=== PATIENT | male | born 1950 | race Caucasian/White ===

== ENCOUNTER 2019-06-09 18:42 | Emergency (ER) | payer MEDICARE, OTHER ==
[2019-06-09] MEDS ORDERED: DEXTROSE 10% 250 ML 250 ML IV ONE (18:46)
--- NOTE | 2019-06-09 19:03 | ERPHSYRPT ---
- History of Present Illness Time Seen by Provider: 06/09/19 18:52 Source: patient, family Exam Limitations: no limitations Patient Subjective Stated Complaint: Hypoglycemia Triage Nursing Assessment: Pt arrived with family and was unable to get out of the vehicle, unable to pivot and follow directions, pt's BS 57 on Accucheck, given D10 and he came around quickly, no neurological deficits noted, Physician History: 68 years old male with history of ventricular fibrillation rate controlled on Coumadin, intervention, diabetes mellitus,, chronic kidney disease present in the ER with sudden onset generalized weakness with feeling as if he was going to pass out. reports patient was totally blank out prior to arrival and was trying to which was not making sense , needing help to get into a car and get out of bed. On arrival his blood sugar was in the 50s. He is given IV dextrose and patient's symptoms drastically started to improve and while I was talking to patient he is back to normal. Patient reports his blood sugar was low yesterday and 70s but did not have any symptoms. He has taken insulin around 3 PM but did not eat anything. Denies any blurry vision, difficulty speech, focal numbness tingling or weakness at present. Does have a history of stroke with some right-sided residual weakness. Timing/Duration: today Severity: moderate Character of Deficits: new weakness, general (difuse) Deficits: weak Baseline/Normal Cognition: alert oriented x 3 Current Cognition: alert oriented x 3 Associated Symptoms: confusion, fatigue, No loss of consciousness, No vomiting, No insomnia, No muscle spasms, No numbness/tingling in legs/feet, No paresthesia , No ringing in ears, No seizures, No slurred speech, No vision changes, No chest pain, No headache Allergies/Adverse Reactions: No Known Drug Allergies Allergy (Unverified 02/03/19 15:47) Home Medications: Aspirin 81 gm Chew [Baby Aspirin 81 mg Chew] 81 mg PO HS 11/25/14 [History ] Cinnamon Bark [Cinnamon] 1,200 mg PO BID 11/25/14 [History] Alsey-3/Dha/Epa/Fish Oil [Fish Oil 500 mg Softgel] 1 cap PO BID 11/25/14 [ History] Rosuvastatin Calcium [Crestor] 10 mg PO HS 11/25/14 [History] Warfarin Sodium 5 mg [Coumadin 5 MG] 5 mg PO DAILY 11/25/14 [History] Bumetanide 1 mg [Bumex 1 mg] 1 mg PO BID 06/09/19 [History] Digoxin 0.125 mg Tablet [Lanoxin 0.125MG TABLET] 0.125 mg PO DAILY [History] Finasteride 5 mg [Proscar 5 MG] 5 mg PO DAILY 06/09/19 [History] Insulin Aspart [NovoLOG Insulin] 10 unit SQ BID 06/09/19 [History] Insulin Glargine,Hum.rec.anlog [Lantus] 50 unit SQ BID 06/09/19 [History] Losartan Potassium [Cozaar] 25 mg PO DAILY 06/09/19 [History] Magnesium Oxide [Magnesium] 400 mg PO DAILY 06/09/19 [History] Metoprolol Succinate 50 mg [Toprol Xl 50 MG] 75 mg PO BID 06/09/19 [ History] Potassium Chloride 10 Meq Tab* [Klor Con 10 MEQ] 10 meq PO DAILY 06/09/19 [ History] glipiZIDE [Glipizide] 20 mg PO BID 06/09/19 [History] Hx Tetanus, Diphtheria Vaccination/Date Given: (UNSURE) Hx Influenza Vaccination/Date Given: Yes Hx Pneumococcal Vaccination/Date Given: Yes - Review of Systems Constitutional: Fatigue, Lethargy, Weakness Eyes: No Symptoms Ears, Nose, & Throat: No Symptoms Respiratory: No Symptoms Cardiac: No Symptoms Abdominal/Gastrointestinal: No Symptoms Genitourinary Symptoms: No Symptoms Musculoskeletal: No Symptoms Skin: No Symptoms Neurological: No Symptoms, No Focal Weakness, No Headache, No Sensory Changes Psychological: No Symptoms Endocrine: No Symptoms Hematologic/Lymphatic: No Symptoms Immunological/Allergic: No Symptoms - Past Medical History Pertinent Past Medical History: Yes Neurological History: Stroke, TIA ENT History: No Pertinent History Cardiac History: Coronary Artery Disease, Myocardial Infarction ([place]), High Cholesterol, Hypertension Respiratory History: No Pertinent History Endocrine Medical History: Diabetes Type II Musculoskeletal History: No Pertinent History GI Medical History: No Pertinent History History: No Pertinent History Psycho-Social History: No Pertinent History Male Reproductive Disorders: Prostate Problems - Past Surgical History Past Surgical History: Yes Neuro Surgical History: No Pertinent History Cardiac: CABG, Cardiac Stent, Cardiac Catheterization Respiratory: No Pertinent History Gastrointestinal: No Pertinent History Genitourinary: No Pertinent History Musculoskeletal: No Pertinent History Male Surgical History: No Pertinent History Other Surgical History: FEM POP. LEFT CAROTID. 4 VESSEL CABG. TONSILS - Social History Smoking Status: Former smoker Exposure to second hand smoke: No Drug Use: none Patient Lives Alone: No - Nursing Vital Signs Nursing Vital Signs: Initial Vital Signs Temperature 97.5 F 06/09/19 18:49 Pulse Rate 87 06/09/19 18:49 Respiratory Rate 20 06/09/19 18:49 Blood Pressure 180/94 06/09/19 18:49 O2 Sat by Pulse Oximetry 91 L 06/09/19 18:49 Pain Scale Pain Intensity 0 - Barbra Coma Scale Best Eye Response ([place]bra): (4) open spontaneously Best Verbal Response ([place]): (5) oriented Best Motor Response ([place]bra): (6) obeys commands [place] Total: 15 - Physical Exam General Appearance: no apparent distress, anxiety Eye Exam: bilateral eye: normal inspection, PERRL, EOMI Ears, Nose, Throat Exam: normal ENT inspection, TMs normal, pharynx normal Neck Exam: normal inspection, non-tender, supple, full range of motion Respiratory: normal breath sounds, lungs clear, No respiratory distress Cardiovascular: regular rate/rhythm, normal heart sounds Gastrointestinal: soft, normal bowel sounds, No tenderness, No distention Back Exam: normal inspection Extremity Exam: normal inspection, normal range of motion, pelvis stable Mental Status: alert, oriented x 3, 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 Exam: normal hearing, normal speech, PERRL, No facial asymmetry, No facial droop Coordination/Gait: normal finger to nose (thisIA day he indicated well he need to stay in) Motor/Sensory: no motor deficit, no sensory deficit, no pronator drift, positive Babinski's sign (right) Skin Exam: normal color, warm, dry SpO2 Interpretation: normal SpO2: 91 O2 Delivery: Room Air - Course Nursing assessment & vital signs reviewed: Yes EKG Interpreted by Me: RATE (91), A-fib, Left [place] Deviation, Right Bundle Branch Block, Q-wave Ordered Tests: Active Orders 24 hr Category Date Time Status Medical Record Administrator STAT Care 06/09/19 19:04 Active EKG-ER Only STAT Care 06/09/19 19:03 Active IV Insertion STAT Care 06/09/19 19:03 Active NPO (ED) STAT Care 06/09/19 19:03 Active Pulse Oximetry (ED) STAT Care 06/09/19 19:03 Active CHEST 1 VIEW (PORTABLE) Stat Exams 06/09/19 19:03 Taken HEAD WITHOUT CONTRAST [CT] Stat Exams 06/09/19 19:03 Taken CBC W DIFF Stat Lab 06/09/19 19:18 Completed CMP Stat Lab 06/09/19 19:18 Completed PROTIME WITH INR Stat Lab 06/09/19 19:18 Completed PTT Stat Lab 06/09/19 19:18 Completed TROPONIN Q3H Lab 06/09/19 19:18 Completed TROPONIN Q3H Lab 06/09/19 22:15 Completed TROPONIN Q3H Lab 06/10/19 01:15 Ordered TROPONIN Q3H Lab 06/10/19 04:15 Ordered TROPONIN Q3H Lab 06/10/19 07:15 Ordered UA W/RFX UR CULTURE Stat Lab 06/09/19 21:20 Completed Medication Summary Discontinued Medications Generic Name Dose Route Start Last Admin Trade Name Freq PRN Reason Stop Dose Admin Aspirin 324 mg 06/09/19 20:12 06/09/19 20:43 Baby Aspirin 81 Mg Chew PO 06/09/19 20:13 324 mg STAT ONE Administration Dextrose Confirm 06/09/19 18:46 Dextrose 10% 250 Ml Administered 06/09/19 18:47 Dose 250 mls @ ud IV .STK-MED ONE Lab/Rad Data: Laboratory Result Diagrams 06/09/19 19:18 06/09/19 19:18 Laboratory Results 06/09/19 06/09/19 06/09/19 Range/Units 22:15 21:20 19:18 WBC (4.0-10.5) K/mm3 RBC (4.1-5.6) M/mm3 Hgb (12.5-18.0) gm/dl Hct (42-50) % MCV (78-100) fl MCH (26-32) pg MCHC (32-36) g/dl RDW (11.5-14.0) % Plt Count (150-450) K/mm3 MPV (6-9.5) fl Gran % (36.0-66.0) % Eos # (Auto) (0-0.5) Absolute Lymphs (auto) (1.0-4.6) Absolute Monos (auto) (0.0-1.3) Lymphocytes % (24.0-44.0) % Monocytes % (0.0-12.0) % Eosinophils % (0.00-5.0) % Basophils % (0.0-0.4) % Absolute Granulocytes (1.4-6.9) Basophils # (0-0.4) PT (8.83-12.87) SECONDS INR (0.8-3.0) APTT (24.1-36.1) SECONDS Sodium (137-145) mmol/L Potassium (3.5-5.1) mmol/L Chloride (98-107) mmol/L Carbon Dioxide (22-30) mmol/L Anion Gap (5-15) MEQ/L BUN (9-20) mg/dL Creatinine (0.66-1.25) mg/dL Estimated GFR ML/MIN Glucose (74-106) mg/dL Calcium (8.4-10.2) mg/dL Total Bilirubin (0.2-1.3) mg/dL AST (17-59) U/L ALT (0-50) U/L Alkaline Phosphatase (38-126) U/L Troponin I 0.027 0.030 (0.000-0.034) ng/mL Serum Total Protein (6.3-8.2) g/dL Albumin (3.5-5.0) g/dL Urine Color STRAW (YELLOW) Urine Appearance CLEAR (CLEAR) Urine pH 6.0 (5-6) Ur Specific [place] 1.006 (1.005-1.025) Urine Protein 30 (Negative) Urine Ketones NEGATIVE (NEGATIVE) Urine Blood NEGATIVE (0-5) Yvan/ul Urine Nitrite NEGATIVE (NEGATIVE) Urine Bilirubin NEGATIVE (NEGATIVE) Urine Urobilinogen NEGATIVE (0-1) mg/dL Ur Leukocyte Esterase NEGATIVE (NEGATIVE) Urine WBC (Auto) 0-2 (0-5) /HPF Urine RBC (Auto) 3-5 (0-2) /HPF U Epithel Cells (Auto) NONE (FEW) /HPF Urine Bacteria (Auto) NONE (NEGATIVE) /HPF Urine Culture Reflexed NO (NO) Urine Glucose NEGATIVE (NEGATIVE) mg/dL 06/09/19 06/09/19 06/09/19 Range/Units 19:18 19:18 19:18 WBC 9.8 (4.0-10.5) K/mm3 RBC 5.72 H (4.1-5.6) M/mm3 Hgb 16.1 (12.5-18.0) gm/dl Hct 49.3 (42-50) % MCV 86.2 (78-100) fl MCH 28.1 (26-32) pg MCHC 32.7 (32-36) g/dl RDW 17.5 H (11.5-14.0) % Plt Count 176 (150-450) K/mm3 MPV 10.2 H (6-9.5) fl Gran % 83.1 H (36.0-66.0) % Eos # (Auto) 0.34 (0-0.5) Absolute Lymphs (auto) 0.61 L (1.0-4.6) Absolute Monos (auto) 0.67 (0.0-1.3) Lymphocytes % 6.3 L (24.0-44.0) % Monocytes % 6.9 (0.0-12.0) % Eosinophils % 3.5 (0.00-5.0) % Basophils % 0.2 (0.0-0.4) % Absolute Granulocytes 8.12 H (1.4-6.9) Basophils # 0.02 (0-0.4) PT 16.8 H (8.83-12.87) SECONDS INR 1.47 (0.8-3.0) APTT 42.0 H (24.1-36.1) SECONDS Sodium 138 (137-145) mmol/L Potassium 3.7 (3.5-5.1) mmol/L Chloride 98 (98-107) mmol/L Carbon Dioxide 28 (22-30) mmol/L Anion Gap 15.5 H (5-15) MEQ/L BUN 31 H (9-20) mg/dL Creatinine 1.86 H (0.66-1.25) mg/dL Estimated GFR 38.5 ML/MIN Glucose 199 H (74-106) mg/dL Calcium 9.5 (8.4-10.2) mg/dL Total Bilirubin 1.10 (0.2-1.3) mg/dL AST 33 (17-59) U/L ALT 22 (0-50) U/L Alkaline Phosphatase 88 (38-126) U/L Troponin I (0.000-0.034) ng/mL Serum Total Protein 8.2 (6.3-8.2) g/dL Albumin 4.5 (3.5-5.0) g/dL Urine Color (YELLOW) Urine Appearance (CLEAR) Urine pH (5-6) Ur Specific [place] (1.005-1.025) Urine Protein (Negative) Urine Ketones (NEGATIVE) Urine Blood (0-5) Yvan/ul Urine Nitrite (NEGATIVE) Urine Bilirubin (NEGATIVE) Urine Urobilinogen (0-1) mg/dL Ur Leukocyte Esterase (NEGATIVE) Urine WBC (Auto) (0-5) /HPF Urine RBC (Auto) (0-2) /HPF U Epithel Cells (Auto) (FEW) /HPF Urine Bacteria (Auto) (NEGATIVE) /HPF Urine Culture Reflexed (NO) Urine Glucose (NEGATIVE) mg/dL - Progress Progress: improved, re-examined Progress Note: 1 patient is much improved with IV dextrose. He has no focal symptoms at all. Recheck blood sugars in the 140s. Negative CT head and other workup. He has chronic kidney disease which is pretty much at baseline. I do not think patient has stroke but is secondary to hypoglycemia but has done stroke workup because of him being on Coumadin making high risk for bleed. I do not think patient needs any further workup and is stable for discharge.recheck blood sugar is 270s. 06/09/19 22:59 a Counseled pt/family regarding: lab results, diagnosis, need for follow-up, rad results - Departure Departure Disposition: Home Clinical Impression: Hypoglycemia Condition: Stable Critical Care Time: Yes Critical Care Time(excluding separately billable procedures): Critical 30-74 mins Referrals: ELLIE GEORGE [Primary Care Provider] - Follow Up with PCP (in one to 2 days for reevaluation.keep appointment with cardiology in the morning.) Instructions: Low Blood Sugar, Adult (DC) Additional Instructions: followup primary care and cardiology for reevaluation. Monitor your blood sugars regularly. Return to ER for any worsening.
[2019-06-09 19:24] LABS: Absolute Neutrophil Ct (ANC) 8.12 (1.4-6.9); BASOPHIL % 0.2 % (0.0-0.4); Basophil (Absolute #) 0.02 (0-0.4); Eosinophil % 3.5 % (0.00-5.0); Eosinophil (Absolute #) 0.34 (0-0.5); Hematocrit 49.3 % (42-50); Hemoglobin 16.1 gm/dl (12.5-18.0); Lymphocyte (Absolute #) 0.61 (1.0-4.6); Lymphocytes % 6.3 % (24.0-44.0); Mean Cell Volume 86.2 fl (78-100); Mean Corpuscular Hemoglobin 28.1 pg (26-32); Mean Corpuscular Hgb Concent. 32.7 g/dl (32-36); Mean Platelet Volume 10.2 fl (6-9.5); Monocyte (Absolute #) 0.67 (0.0-1.3); Monocytes % 6.9 % (0.0-12.0); Neutrophil % 83.1 % (36.0-66.0); Platelet Count 176 K/mm3 (150-450); Red Blood Count 5.72 M/mm3 (4.1-5.6); Red Cell Distribution Width 17.5 % (11.5-14.0); White Blood Count 9.8 K/mm3 (4.0-10.5)
[2019-06-09 19:29] LABS: INR 1.47 (0.8-3.0); PROTIME 16.8 SECONDS (8.83-12.87)
[2019-06-09 19:34] LABS: ALBUMIN 4.5 g/dL (3.5-5.0); ANION GAP 15.5 MEQ/L (5-15); BILIRUBIN,TOTAL 1.1 mg/dL (0.2-1.3); Calcium 9.5 mg/dL (8.4-10.2); Creatinine 1 1.86 mg/dL (0.66-1.25); Potassium 3.7 mmol/L (3.5-5.1); Total Protein 8.2 g/dL (6.3-8.2)
[2019-06-09] MEDS ORDERED: BABY ASPIRIN 81 MG CHEW PO ONE (20:12)
[2019-06-09 21:33] LABS: Appearance CLEAR (CLEAR); Bilirubin NEGATIVE (NEGATIVE); Blood NEGATIVE Ery/ul (0-5); Glucose NEGATIVE (NEGATIVE); Ketones NEGATIVE (NEGATIVE); Leukocyte Esterase NEGATIVE (NEGATIVE); Nitrite NEGATIVE (NEGATIVE); Protein,Urine Dip 30 (Negative); Specific Gravity 1.006 (1.005-1.025); Urobilinogen NEGATIVE mg/dL (0-1); WBC 0-2 /HPF (0-5)
[2019-06-09 23:19] VITALS: BP 151/102; PULSE 114; O2SAT 94
--- NOTE | 2019-06-10 08:50 | XRAY ---
Indication: Stroke symptoms. Low blood sugar. Comparison: December 20, 2009. Portable chest less inflated today with new bibasilar infiltrates versus atelectasis. Stable right base calcified granuloma. Heart is not enlarged for AP portable technique again demonstrating CABG surgery and cardiac valve replacement. Bony thorax intact again with mild degenerative changes. Impression: New bibasilar infiltrates/atelectasis. Correlate clinically.
--- NOTE | 2019-06-10 08:56 | XRAY ---
Indication: Stroke symptoms. Low blood sugar. Multiple contiguous axial images obtained through the head without contrast. Comparison: June 16, 2007. Ventriculosulcal pattern appears symmetric. Stable small left periventricular linear hypodensity posteriorly favoring old infarct. Also stable right basal ganglia lacunar infarct. No acute intracranial hemorrhage, abnormal extra-axial fluid collection, or mass effect. Fourth ventricle is midline without hydrocephalus. Blanco-white matter differentiation preserved. Bony calvarium intact. Visualized paranasal sinuses and mastoid air cells are clear. Impression: Stable small left periventricular infarct and right basal ganglia lacunar infarct. No new or acute intracranial abnormalities. CTDI 60.95
== END 2019-06-09 23:18 | disposition home or self-care (01) ==
LOC: ED 18:42
DX: E16.2 Hypoglycemia, unspecified (principal); E11.9 Type 2 diabetes mellitus without complications; I25.10 Atherosclerotic heart disease of native coronary artery without angina pectoris; I25.2 Old myocardial infarction; E78.00 Pure hypercholesterolemia, unspecified; I10 Essential (primary) hypertension; Z86.73 Personal history of transient ischemic attack (TIA), and cerebral infarction without residual deficits; Z95.1 Presence of aortocoronary bypass graft; Z79.899 Other long term (current) drug therapy; Z79.01 Long term (current) use of anticoagulants; Z79.84 Long term (current) use of oral hypoglycemic drugs; Z79.4 Long term (current) use of insulin
CPT/HCPCS: 36000; 36415; 70450; 71045; 80053; 81001; 84484; 85025; 85610; 85730; 93005; 93041; 94760; 99284; 99291; A9270-GY

== ENCOUNTER 2024-07-21 21:18 | Emergency (ER) | payer MEDICARE, OTHER ==
[2024-07-21] MEDS ORDERED: MORPHINE SULFATE 4 MG INJ ONE (21:38)
[2024-07-21 21:40] VITALS: TEMP 97.7
[2024-07-21] MEDS: MORPHINE SULFATE 4 MG INJ IV ONE (21:41)
--- NOTE | 2024-07-21 21:47 | ERPHSYRPT ---
- History of Present Illness Time Seen by Provider: 07/21/24 21:21 Source: patient Exam Limitations: no limitations Patient Subjective Stated Complaint: C/O FALL Triage Nursing Assessment: Patient brought into ED by with c/o fall that occurred in his garage around 1430 today. Patient stated. "I was carrying a box and went to turn and lost my footing and fell backwards." denies LOC or hitting his head. patient states that he fell on his right hip. rates pain 8/10 with movement and 3/10 pain at rest. patients right leg is slightly shorter that than the left. hypertensive, skin w/n/d, brought in by wheelchair, pulses normal, patient doesn't appear to be in any distress at this time. Physician History: Patient is here with right hip pain extending into his right upper thigh. Patient states he had a ground-level fall earlier today. Patient is on a blood thinner. He is not sure which one. Patient states that it was definitely mechanical fall, had no chest pain, shortness of breath, nausea or vomiting be fore the fall. Patient states that he did "bump his head". However he has no pain, signs of trauma, headache. They state that they tried to wait it out at home. However continued to get worse pain, could not ambulate. Therefore brought to the emergency room tonight. He is otherwise in his normal state of health without, recent illness or other sickness. Reviewing medications, patient is on Eliquis. Allergies/Adverse Reactions: No Known Drug Allergies Allergy (Verified 07/21/24 21:41) Home Medications: Aspirin 81 gm Chew [Baby Aspirin 81 mg Chew] 81 mg PO HS 11/25/14 [History] Rosuvastatin Calcium [Crestor] 10 mg PO HS 11/25/14 [History] Bumetanide 1 mg [Bumex 1 mg] 1 mg PO BID 06/09/19 [History] Digoxin 0.125 mg Tablet [Lanoxin 0.125MG TABLET] 0.125 mg PO DAILY 06/09/19 [History] Finasteride 5 mg [Proscar 5 MG] 5 mg PO HS 06/09/19 [History] Insulin Aspart [NovoLOG Insulin] 8 unit SQ UD 06/09/19 [History] Insulin Glargine,Hum.rec.anlog [Lantus] 18 unit SQ BID 06/09/19 [History] Losartan Potassium [Cozaar] 25 mg PO DAILY 06/09/19 [History] Metoprolol Succinate 50 mg [Toprol Xl 50 MG] 75 mg PO BID 06/09/19 [History] Potassium Chloride Tab* [Klor Con 10 MEQ] 10 meq PO DAILY 06/09/19 [History] Apixaban [Eliquis] 5 mg PO BID 07/21/24 [History] Ascorbic Acid 500 mg [Vitamin C 500 MG] 500 mg PO DAILY 07/21/24 [History] Cyanocobalamin (Vitamin B-12) [Vitamin B-12] 1,000 mcg PO DAILY 07/21/24 [History] Empagliflozin [Jardiance] 10 mg PO DAILY 07/21/24 [History] Ergocalciferol (Vitamin D2) [Vitamin D2] 1,250 mcg PO Q7D 07/21/24 [History] HydrALAzine HCL 25 MG TAB [Apresoline 25 MG TABLET] 25 mg PO TID 07/21/24 [History] Semaglutide [Ozempic] 2 mg SQ Q7D 07/21/24 [History] Sildenafil Citrate 20 mg PO TID 07/21/24 [History] calcitrioL [Calcitriol] 1 cap PO UD 07/21/24 [History] Hx Tetanus, Diphtheria Vaccination/Date Given: Yes (UNSURE) Hx Influenza Vaccination/Date Given: Yes Hx Pneumococcal Vaccination/Date Given: Yes Travel Risk - International Travel Have you traveled outside of the country in past 3 weeks: No - Emerging Infectious Disease Are you exhibiting symptoms associated with any current EIDs: No - Past Medical History Pertinent Past Medical History: Yes Neurological History: Stroke, Other ENT History: No Pertinent History Cardiac History: Hypertension Respiratory History: No Pertinent History Endocrine Medical History: Diabetes Type II, Other Musculoskeletal History: Osteoarthritis GI Medical History: No Pertinent History History: No Pertinent History Psycho-Social History: No Pertinent History Male Reproductive Disorders: Prostate Problems Other Medical History: R LE WEAKNESS FOLLOWING CVA. JOSHUA DUNN SYNDROME, KIDNEY PROBLEMS, BYPASS, OPEN HEART SURGERY. - Past Surgical History Past Surgical History: Yes Neuro Surgical History: No Pertinent History Cardiac: CABG, Cardiac Stent, Cardiac Catheterization Respiratory: No Pertinent History Gastrointestinal: No Pertinent History Genitourinary: No Pertinent History Musculoskeletal: No Pertinent History Male Surgical History: No Pertinent History Other Surgical History: FEM POP , RIGHT HIP REPLACEMENT. LEFT CAROTID. 4 VESSEL CABG. TONSILS - Social History Smoking Status: Former smoker Exposure to second hand smoke: No Drug Use: none Patient Lives Alone: No - Social Determinants of Health Will the patient participate in the screening: Yes Do you worry about a steady place to live?: No Do you have any problems with any of the following?: No known problems In the past 12 months,have you had to go without utilities?: No Transportation Issues: No Has anyone in your support network made you feel unsafe?: No Have you or anyone in your house had to go without enough: No - Nursing Vital Signs Nursing Vital Signs: Initial Vital Signs Temperature 97.7 F 07/21/24 21:28 Pulse Rate 60 07/21/24 21:28 Respiratory Rate 18 07/21/24 21:28 Blood Pressure 166/62 07/21/24 21:28 O2 Sat by Pulse Oximetry 96 07/21/24 21:28 Pain Scale Pain Intensity 6 - Physical Exam SpO2: 95 Comments: 07/21/24 21:45 Review of Systems Constitutional: Negative for fever. HENT: Negative for congestion. Respiratory: Negative for shortness of breath. Cardiovascular: Negative for chest pain. Gastrointestinal: Negative for abdominal pain. Genitourinary: Negative for dysuria. Musculoskeletal: Negative for back pain. Skin: Negative for rash. Neurological: Negative for headaches. Psychiatric/Behavioral: Negative for behavioral problems. All other systems reviewed and are negative. Physical Exam Vitals signs and nursing note reviewed. Constitutional: Appearance: Patient is well-developed. HENT: Head: Normocephalic and atraumatic. Eyes: Conjunctiva/sclera: Conjunctivae normal. Neck: Musculoskeletal: Normal range of motion. Trachea: No tracheal deviation. Cardiovascular: Rate and Rhythm: Normal rate. Heart sounds normal. Pulmonary: Effort: Pulmonary effort is normal. No respiratory distress. Abdominal: Palpations: Abdomen is soft. Musculoskeletal: General: Right hip tenderness into the right upper thigh. No obvious deformity. Patient does have a scar on his right lateral hip. Believes that he may have had a previous hip replacement at [facility]. But, he does not remember. He is neurovascularly intact, no overlying skin changes. Sensation intact, pulses intact distal to the injury. He is able to wiggle his toes, bend his knee. However he has any pain with movement at the hip joint or right thigh. Skin: General: Skin is warm and dry. Neurological/ Psychiatric: Mental Status: Mental status, behavior, interaction with environment is appropriate for patient's age and condition - Course Nursing assessment & vital signs reviewed: Yes Ordered Tests: Active Orders 24 hr Category Date Time Status IV Insertion STAT Care 07/21/24 21:33 Active FEMUR Stat Exams 07/21/24 21:32 Completed HEAD WITHOUT CONTRAST [CT] Stat Exams 07/21/24 21:31 Completed HIP UNI (2V) INCL PEL IF DONE Stat Exams 07/21/24 21:31 Completed CBC Stat Lab 07/21/24 21:55 Completed CBC Stat Lab 07/22/24 01:39 Completed CMP Stat Lab 07/21/24 21:55 Completed PROTIME WITH INR Stat Lab 07/21/24 21:55 Completed Medication Summary Discontinued Medications Generic Name Dose Route Start Last Admin Trade Name Maxime PRN Reason Stop Dose Admin Hydromorphone HCl 1 mg 07/21/24 21:58 07/21/24 22:13 Hydromorphone 1 Mg/1ml Inj IV 07/21/24 21:59 1 mg STAT ONE Administration Hydromorphone HCl Confirm 07/21/24 22:12 Hydromorphone 1 Mg/1ml Inj Administered 07/21/24 22:13 Dose 1 mg .ROUTE .STK-MED ONE Morphine Sulfate 4 mg 07/21/24 21:33 07/21/24 21:41 Morphine Sulfate 4 Mg/Ml Injection IV 07/21/24 21:34 4 mg STAT ONE Administration Morphine Sulfate Confirm 07/21/24 21:38 Morphine Sulfate 4 Mg/Ml Injection Administered 07/21/24 21:39 Dose 4 mg .ROUTE .STK-MED ONE Ondansetron HCl 8 mg 07/21/24 21:58 07/21/24 22:13 Ondansetron Hcl 4 Mg/2 Ml Vial IV 07/21/24 21:59 8 mg STAT ONE Administration Ondansetron HCl Confirm 07/21/24 22:12 Ondansetron Hcl 4 Mg/2 Ml Vial Administered 07/21/24 22:13 Dose 8 mg .ROUTE .STK-MED ONE Lab/Rad Data: Laboratory Result Diagrams 07/22/24 01:39 07/21/24 21:55 Laboratory Results 07/22/24 07/21/24 07/21/24 Range/Units 01:39 21:55 21:55 WBC 11.7 H (4.23-9.07) x10^3/uL RBC 4.33 L (4.63-6.08) x10^6/uL Hgb 10.7 L (13.7-17.5) g/dL Hct 33.9 L (40.1-51.0) % MCV 78.3 L (79.0-92.2) fL MCH 24.7 L (25.7-32.2) pg MCHC 31.6 L (32.3-36.5) g/dL RDW 16.9 H (11.6-14.4) % Plt Count 212 (163-337) x10^3/uL MPV 9.5 (9.4-12.4) fL PT 10.9 (9.4-12.5) SECONDS INR 1.00 (0.8-3.0) Sodium 135 (135-145) mmol/L Potassium 3.9 (3.5-5.1) mmol/L Chloride 104 (98-107) mmol/L Carbon Dioxide 19 L (22-30) mmol/L Anion Gap 16.5 H (5-15) MEQ/L BUN 46 H (9-20) mg/dL Creatinine 2.26 H (0.66-1.25) mg/dL Estimated GFR 29.7 ML/MIN Glucose 193 H (74-106) mg/dL Calcium 9.1 (8.4-10.2) mg/dL Total Bilirubin 0.90 (0.2-1.3) mg/dL AST 34 (17-59) U/L ALT 26 (0-50) U/L Alkaline Phosphatase 74 (38-126) U/L Serum Total Protein 7.3 (6.3-8.2) g/dL Albumin 4.4 (3.5-5.0) g/dL 07/21/24 Range/Units 21:55 WBC 13.7 H (4.23-9.07) x10^3/uL RBC 5.00 (4.63-6.08) x10^6/uL Hgb 12.1 L (13.7-17.5) g/dL Hct 39.0 L (40.1-51.0) % MCV 78.0 L (79.0-92.2) fL MCH 24.2 L (25.7-32.2) pg MCHC 31.0 L (32.3-36.5) g/dL RDW 16.9 H (11.6-14.4) % Plt Count 256 (163-337) x10^3/uL MPV 10.1 (9.4-12.4) fL PT (9.4-12.5) SECONDS INR (0.8-3.0) Sodium (135-145) mmol/L Potassium (3.5-5.1) mmol/L Chloride (98-107) mmol/L Carbon Dioxide (22-30) mmol/L Anion Gap (5-15) MEQ/L BUN (9-20) mg/dL Creatinine (0.66-1.25) mg/dL Estimated GFR ML/MIN Glucose (74-106) mg/dL Calcium (8.4-10.2) mg/dL Total Bilirubin (0.2-1.3) mg/dL AST (17-59) U/L ALT (0-50) U/L Alkaline Phosphatase (38-126) U/L Serum Total Protein (6.3-8.2) g/dL Albumin (3.5-5.0) g/dL - Progress Progress: improved Progress Note: 07/21/24 21:46 Differential diagnosis includes fracture, sprain, strain, other injury. Will obtain a head CT, x-ray right hip, right femur, pelvis basic labs, PT/INR 07/22/24 00:52 X-ray demonstrates a periprosthetic right femur fracture. Other x-rays appear to be negative. Head CT negative. I did discuss over the phone with on-call orthopedic surgeon, Dr. Pereyra. He did state that we do not do periprosthetic femur fractures here at [facility]. I did call [facility]. They also declined patient for same reason. We attempted to transfer to [facility]. However, we did not hear back in a timely manner. Therefore, I did call [facility]. Patient was auto excepted via protocols by Dr. Parekh, as a trauma 2, ER to ER. This is given the fact that patient is on Eliquis. Patient otherwise hemodynamically stable at this point in time. Plan for continued close monitoring prior to transfer. Pain appropriately treated in the emergency department. I did discuss all risks of transfer and benefits with family. They state their understanding. 07/22/24 03:03 Counseled pt/family regarding: lab results, diagnosis, need for follow-up, rad results - Departure Departure Disposition: Transfer Clinical Impression: Femur fracture, right Condition: Stable Critical Care Time: No Referrals: ROLLY NORRIS MD [Primary Care Provider] - Follow up/PCP as directed
[2024-07-21 21:50] LABS: Hemoglobin 12.1 g/dL (13.7-17.5); Mean Corpuscular Hemoglobin 24.2 pg (25.7-32.2); Mean Platelet Volume 10.1 fL (9.4-12.4); Platelet Count 256 x10^3/uL (163-337); Red Cell Distribution Width 16.9 % (11.6-14.4); White Blood Count 13.7 x10^3/uL (4.23-9.07)
[2024-07-21 22:04] LABS: PROTIME 10.9 SECONDS (9.4-12.5)
[2024-07-21 22:06] LABS: ALBUMIN 4.4 g/dL (3.5-5.0); ANION GAP 16.5 MEQ/L (5-15); BILIRUBIN,TOTAL 0.9 mg/dL (0.2-1.3); Calcium 9.1 mg/dL (8.4-10.2); Creatinine 1 2.26 mg/dL (0.66-1.25); EST GLOMERULAR FILTRATION RATE 29.7 ML/MIN; Potassium 3.9 mmol/L (3.5-5.1); Total Protein 7.3 g/dL (6.3-8.2)
[2024-07-21] MEDS ORDERED: Zofran 4 MG/2 ML VIAL ONE (22:12)
[2024-07-21] MEDS ORDERED: Hydromorphone 1 mg/ml Injection ONE (22:12)
[2024-07-21] MEDS: Hydromorphone 1 mg/ml Injection IV ONE (22:13)
[2024-07-21] MEDS: Zofran 4 MG/2 ML VIAL IV ONE (22:13)
--- NOTE | 2024-07-21 23:05 | XRAY ---
CLINICAL HISTORY: fall COMPARISON: 09 June 2019. TECHNIQUE: Multiple axial images are obtained from the skull base to the vertex without contrast. CT scan was performed according to ALARA (as low as reasonably achievable). FINDINGS: Supratentorial and infratentorial neuroparenchyma appear normal. There is cerebral atrophy. The castaneda-white matter differentiation is preserved. No evidence of space occupying lesion, hemorrhage, edema, mass effect, midline shift, extra axial collection, or hydrocephalus is noted. Basal cisterns are symmetric and normal in size and configuration. Visualized paranasal sinuses and mastoid air cells are well aerated. Orbital contents are within normal limits. Bony structures are intact. Rest of the findings are unchanged compared to the previous CT scan. IMPRESSION: 1. No evidence of acute intracranial abnormality is demonstrated. 2. Mild age related cerebral atrophy. No significant interval new finding is noted as compared to the previous CT scan. Electronically Signed by: Gennaro Ordoñez MD. (07/21/2024 23:00:40 EST)
--- NOTE | 2024-07-21 23:11 | XRAY ---
CLINICAL HISTORY: fall, right leg pain COMPARISON: 24 January 2015. TECHNIQUE: Radiographs of femur were acquired. FINDINGS: Hip replacement prosthesis noted in situ. It is well aligned. Comminuted, obliquely oriented fracture of the proximal femoral metadiaphysis is noted. Few bony fragments are noted cranial to the greater trochanter of the femur. The soft tissues are unremarkable. IMPRESSION: 1. Hip replacement prosthesis noted in situ. It is well aligned. 2. Comminuted, obliquely oriented fracture of the proximal femoral metadiaphysis is noted. New finding. 3. Few bony fragments are noted cranial to the greater trochanter of the femur. Relatively stable. Electronically Signed by: Gennaro Ordoñez MD. (07/21/2024 23:07:32 EST)
--- NOTE | 2024-07-21 23:14 | XRAY ---
CLINICAL HISTORY: fall COMPARISON: 24 January 2015. TECHNIQUE: Radiographs of the hip were acquired. FINDINGS: Hip replacement prosthesis noted in situ. It is well aligned. Comminuted, obliquely oriented fracture of the proximal femoral metadiaphysis is noted. This is a new finding. Few bony fragments/calcifications are noted cranial to the greater trochanter of the femur. Relatively unchanged. Possible dystrophic calcifications. Soft tissues are unremarkable. Rest of the findings are unchanged compared to the previous radiograph. IMPRESSION: 1. Hip replacement prosthesis noted in situ. It is well aligned. 2. Comminuted, obliquely oriented fracture of the proximal femoral metadiaphysis is noted. This is a new finding. 3. Few bony fragments/ soft tissue calcifications are noted cranial to the greater trochanter of the femur. Relatively unchanged. Electronically Signed by: Gennaro Ordoñez MD. (07/21/2024 23:11:34 EST)
[2024-07-22 01:41] LABS: Hematocrit 33.9 % (40.1-51.0); Hemoglobin 10.7 g/dL (13.7-17.5); Mean Cell Volume 78.3 fL (79.0-92.2); Mean Corpuscular Hemoglobin 24.7 pg (25.7-32.2); Mean Corpuscular Hgb Concent. 31.6 g/dL (32.3-36.5); Mean Platelet Volume 9.5 fL (9.4-12.4); Platelet Count 212 x10^3/uL (163-337); Red Blood Count 4.33 x10^6/uL (4.63-6.08); Red Cell Distribution Width 16.9 % (11.6-14.4); White Blood Count 11.7 x10^3/uL (4.23-9.07)
[2024-07-22 02:02] VITALS: RESP 17
[2024-07-22 03:03] VITALS: BP 167/71; PULSE 46
[2024-07-22 03:04] VITALS: O2SAT 95
== END 2024-07-22 03:31 | disposition short-term general hospital (02) ==
LOC: ED 21:18
DX: S72.001A Fracture of unspecified part of neck of right femur, initial encounter for closed fracture (principal); M97.01XA Periprosthetic fracture around internal prosthetic right hip joint, initial encounter; W18.39XA Other fall on same level, initial encounter; I10 Essential (primary) hypertension; E11.9 Type 2 diabetes mellitus without complications; Z79.01 Long term (current) use of anticoagulants; Z79.4 Long term (current) use of insulin; Z79.85 Long-term (current) use of injectable non-insulin antidiabetic drugs; Z79.899 Other long term (current) drug therapy
CPT/HCPCS: 36415; 70450; 73502; 73552; 80053; 85027; 85610; 96374; 96375; 99285; J1171; J2270; J2405